=== PATIENT | female | born 1965 | race Caucasian/White ===

== ENCOUNTER 2019-11-01 22:05 | Inpatient (IN) ==
[2019-11-01] MEDS ORDERED: HydrALAZINE HCL 20 MG/ML VIAL IV STA (22:28)
--- NOTE | 2019-11-01 22:38 | XRay Report ---
SINGLE VIEW CHEST CLINICAL HISTORY: Atypical chest pain. FINDINGS: An AP, portable, upright chest radiograph is obtained. No prior studies are available for c omparison at the time of dictation. The examination is degraded by portable technique and apical lord otic positioning. The cardiomediastinal silhouette is unremarkable. There is mild elevation of right hemidiaphragm. The lungs and pleural spaces are clear. No pneumothorax is seen. The bony thorax is gr ossly intact. IMPRESSION: No active disease in the chest. ACT 112: Negative or not required by law. Electronically signed by: Brien Greenwood M.D. 11/01/2019 10:37 PM
[2019-11-01 23:01] LABS: Basophils # (auto) 0.02 K/uL (0-0.2); Basophils % (auto) 0.1 %; Eosinophils # (auto) 0.32 K/uL (0-0.5); Eosinophils % (auto) 2.3 %; Hematocrit (blood only) 39.7 % (37-47); Hemoglobin 14.4 g/dL (12.0-16.0); Immature Granulocytes # (auto) 0.06 K/uL (0.00-0.02); Immature Granulocytes % (auto) 0.4 %; Lymphocytes # (auto) 2.26 K/uL (1.2-3.4); Lymphocytes % (auto) 16.1 %; Mean Corpuscular Hemoglobin 29.1 pg (25-34); Mean Corpuscular Hgb Conc 36.3 g/dL (32-36); Mean Corpuscular Volume 80.2 fL (80-100); Mean Platelet Volume 9.2 fL (7.4-10.4); Monocytes # (auto) 0.79 K/uL (0.11-0.59); Monocytes % (auto) 5.6 %; Neutrophils # (auto) 10.61 K/uL (1.4-6.5); Neutrophils % (auto) 75.5 %; Platelet Count 387 K/uL (130-400); RDW Coefficient of Variation 12.8 % (11.5-14.5); RDW Standard Deviation 36.9 fL (36.4-46.3); Red Blood Count 4.95 M/uL (4.2-5.4); White Blood Count 14.06 K/uL (4.8-10.8)
[2019-11-01 23:13] LABS: Partial Thromboplastin Ratio 1.1; Partial Thromboplastin Time 28.7 Seconds (21.0-31.0); Prothrombin Time 10.7 Seconds (9.0-12.0)
[2019-11-01 23:27] LABS: Albumin Level 3.5 gm/dl (3.4-5.0); BUN Creatinine Ratio 10.7 (10-20); Calcium 9.3 mg/dl (8.5-10.1); Est GFR (Non-African American) 61.3; Potassium 3.7 mmol/L (3.5-5.1)
[2019-11-01 23:31] LABS: Albumin Globulin Ratio 0.8 (0.9-2); Bilirubin,Total 0.3 mg/dl (0.2-1); Globulin 4.2 gm/dl (2.5-4.0); Total Protein 7.7 gm/dl (6.4-8.2); Troponin I 0.104 ng/ml (0-0.045)
[2019-11-01 23:38] LABS: Beta-Hydroxybutyrate 1.8 mg/dl (0.2-2.81); Thyroid Stimulating Hormone 2.31 uIu/ml (0.300-4.500)
[2019-11-01 23:44] LABS: Appearance Urine Clear (Clear); Bacteria Urine Automated Negative (Negative); Bilirubin Urine Negative (Negative); Blood Urine Negative (Negative); Cast Urine Automated 0 /lpf (0-5); Color Urine Yellow; Epithelial Cell Urine Auto >30 /lpf (0-5); Glucose Urine UA 3+ (Negative); Ketones Urine Negative (Negative); Leukocyte Esterase Urine Negative (Negative); Nitrite Urine Negative (Negative); Protein Urine Trace (Negative); RBC Urine Automated 0-4 /hpf (0-4); Urobilinogen Urine Negative (Negative)
[2019-11-01] MEDS ORDERED: lisinopriL 40 MG TAB PO STA (23:59)
[2019-11-02] MEDS ORDERED: ASPIRIN 81 MG CHEW PO STA (00:01)
--- NOTE | 2019-11-02 00:01 | Emergency Department Note ---
Entered by Katlyn Hudson acting as a scribe for Heber Villagomez DO History of Present Illness General Chief complaint: Neuro Symptoms/Deficit Stated complaint: ELEVATED BP Time Seen by Provider: 11/01/19 22:17 Source: patient History of Present Illness Provider complaint: Neuro Symptoms/ Deficit Onset (ago): hour(s) 5 Location: face and left Radiation: extremity (Left hand) Relieved By: + none Exacerbated By: + none Associated symptoms: + other (Visual disturbances) The patient is a 54 year old female who presents to the Emergency Room with complaints of neuro symptoms/deficit that began about 5 hours ago. The patient reports that she began to notice some visual disturbances around 5pm that last for about 10 minutes and is now resolved. The patient notes that she then noticed that the side of her face felt "not right but not numb" and that she noticed decreased sensation in her left hand. The patient states that her symptoms are not relieved nor exacerbated by anything specific. Home Medications Home Medications Medication Instructions Recorded Confirmed Type acetaminophen [Tylenol Extra 1,000 mg PO DIRECTED PRN 11/01/19 11/01/19 History Strength] atenolol 25 mg PO BID 11/01/19 11/01/19 History fenofibrate 160 mg PO DAILY 11/01/19 11/01/19 History glipizide 10 mg PO BID 11/01/19 11/01/19 History indapamide 1.25 mg PO QAM 11/01/19 11/01/19 History lisinopril 40 mg PO DAILY 11/01/19 11/01/19 History metformin 1,000 mg PO BID 11/01/19 11/01/19 History omeprazole 20 mg PO DAILY 11/01/19 11/01/19 History simvastatin 40 mg PO DAILY 11/01/19 11/01/19 History Allergies Allergy/AdvReac Type Severity Reaction Status Date / Time tetracycline AdvReac Severe SEVERE GI Verified 11/01/19 22:54 UPSET aspirin AdvReac Intermediate HX Verified 11/01/19 22:54 ULCERS--GI UPSET Past Med/Surg History Medical History Hypertension Surgical History No pertinent past surgical history Family History Other No pertinent family history in first degree relatives Social History Preferred Language: Slovenian Feels Safe at Home: Yes Smoking Status: Former smoker Review of Systems See HPI for pertinent positives & negatives. and A total of 10 systems reviewed and were otherwise negative Physical Exam Vital Signs Vital Signs - 24 hr 11/01/19 22:08 11/01/19 23:11 Temperature 36.4 C L Temperature Source Oral Pulse Rate 86 92 H Pulse Rate [Finger] 92 H Pulse Rhythm Regular Regular Pulse Rhythm [Finger] Regular Pulse Strength Normal Pulse Strength [Finger] Normal Respiratory Rate 20 18 Respiratory Effort / Characteristics Non-Labored Spontaneous Non-Labored Spontaneous Respiratory Depth Normal Normal Respiratory Pattern Regular Regular Blood Pressure 230/132 H Blood Pressure [Right Arm] 218/124 H Blood Pressure Mean 164 Blood Pressure Mean [Right Arm] 155 Blood Pressure Position Sitting Blood Pressure Position [Right Arm] Lying Pulse Oximetry 98 97 Oxygen Delivery Method Room Air Room Air Sepsis Recent Fever Within 48 Hours No Sepsis Action Taken by Nursing No Action Required VITAL SIGNS: were reviewed as above. GENERAL:Non-toxic in appearance. SKIN: Warm dry and pink. HEAD: Normocephalic and atraumatic. OROPHARYNX: Is clear and moist NECK: Supple without lymphadenopathy or meningismus. LUNGS: clear. HEART: Regular rate and rhythm. ABDOMEN: Soft and nontender. EXTREMITIES: Warm and well perfused. NEUROLOGICALLY: Awake alert and oriented without focal deficit. Cranial nerves 2-12 are intact. There is no pronator drift. Cerebellar testing is within normal limits. There is no nystagmus. There is no facial droop. Speech is clear. Vision is grossly normal. Slight decrease in sensation in left forearm and left face. MUSCULOSKELETAL: Good muscle tone. No evidence of trauma. Course Course 2221: Past medical records reviewed. The patient was evaluated in room C08. A complete history and physical exam was performed. 2348: I spoke with Dr. Yeager- Hospitalist about the patient's case and he will accept the patient for further evaluation. Administered Medications Discontinued Medications Hydralazine HCl (Hydralazine Hcl) 15 mg IV NOW STA Stop: 11/01/19 22:29 Last Admin: 11/01/19 22:58 Dose: 15 mg Documented by: [id number] Critical Care Time Critical Care Time: Yes Total Critical Care Time: 38 I have personally spent approximately 38 minutes of critical care time in the direct management of this patient. This includes bedside care, interpretation of diagnostic studies, and testing, discussion with consultants, patient, and [facility] members, and other required patient management activities. This approximate 38 minutes is in excess of all separately billable procedures. Medical Decision Making Differential Diagnosis Differential Diagnosis includes but is not limited to dehydration, stroke, anemia, hypoglycemia, hyponatremia, hypernatremia, urinary tract infection, pneumonia, bronchitis, sepsis, gastroenteritis, additional abdominal pathology, metabolic abnormalities and infections. Medical Records Attestation: I reviewed the patient's medical records. Home Medications Current Medication List: was personally reviewed by me Laboratory Data Attestation: I reviewed the patient's lab results. Result diagrams: 11/01/19 22:50 11/01/19 22:50 Lab Results 11/01/19 11/01/19 11/01/19 Range/Units 22:50 22:50 22:50 WBC 14.06 H (4.8-10.8) K/uL RBC 4.95 (4.2-5.4) M/uL Hgb 14.4 (12.0-16.0) g/dL Hct 39.7 (37-47) % MCV 80.2 (80-100) fL MCH 29.1 (25-34) pg MCHC 36.3 H (32-36) g/dL RDW Std Deviation 36.9 (36.4-46.3) fL RDW Coeff of [place] 12.8 (11.5-14.5) % Plt Count 387 (130-400) K/uL MPV 9.2 (7.4-10.4) fL Immature Gran % (Auto) 0.4 % Neut % (Auto) 75.5 % Lymph % (Auto) 16.1 % [place] % (Auto) 5.6 % Eos % (Auto) 2.3 % Baso % (Auto) 0.1 % Immature Gran # (Auto) 0.06 H (0.00-0.02) K/uL Neut # (Auto) 10.61 H (1.4-6.5) K/uL Lymph # (Auto) 2.26 (1.2-3.4) K/uL [place] # (Auto) 0.79 H (0.11-0.59) K/uL Eos # (Auto) 0.32 (0-0.5) K/uL Baso # (Auto) 0.02 (0-0.2) K/uL PT 10.7 (9.0-12.0) Seconds INR 1.0 (0.9-1.1) APTT 28.7 (21.0-31.0) Seconds PTT Ratio 1.1 Sodium 132 L (136-145) mmol/L Potassium 3.7 (3.5-5.1) mmol/L Chloride 96 L (98-107) mmol/L Carbon Dioxide 26 (21-32) mmol/L Anion Gap 10.0 (3-11) BUN 11 (7-18) mg/dl Creatinine 1.04 (0.6-1.2) mg/dl Est Cr Clr Drug Dosing 63.0 ml/min Est GFR ( Amer) 71.0 Est GFR (Non-Af Amer) 61.3 BUN/Creatinine Ratio 10.7 (10-20) Glucose 323 H* (70-99) mg/dl Calcium 9.3 (8.5-10.1) mg/dl Total Bilirubin 0.3 (0.2-1) mg/dl AST 10 L (15-37) U/L ALT 16 (12-78) U/L Alkaline Phosphatase 70 (45-117) U/L Total Creatine Kinase 179 (26-192) U/L Troponin I 0.104 H* (0-0.045) ng/ml Total Protein 7.7 (6.4-8.2) gm/dl Albumin 3.5 (3.4-5.0) gm/dl Globulin 4.2 H (2.5-4.0) gm/dl Albumin/Globulin Ratio 0.8 L (0.9-2) Lipase 85 (73-393) U/L Beta-Hydroxybutyric Acd 1.80 (0.2-2.81) mg/dl TSH 2.310 (0.300-4.500) uIu/ml Urine Color Urine Appearance (Clear) Urine pH (4.5-7.5) Ur Specific [place] (1.000-1.030) Urine Protein (Negative) Urine Glucose (UA) (Negative) Urine Ketones (Negative) Urine Blood (Negative) Urine Nitrite (Negative) Urine Bilirubin (Negative) Urine Urobilinogen (Negative) Ur Leukocyte Esterase (Negative) Urine WBC (Auto) (0-5) /hpf Urine RBC (Auto) (0-4) /hpf U Hyaline Cast (Auto) (0-5) /lpf U Epithel Cells (Auto) (0-5) /lpf Urine Bacteria (Auto) (Negative) 11/01/19 Range/Units 23:27 WBC (4.8-10.8) K/uL RBC (4.2-5.4) M/uL Hgb (12.0-16.0) g/dL Hct (37-47) % MCV (80-100) fL MCH (25-34) pg MCHC (32-36) g/dL RDW Std Deviation (36.4-46.3) fL RDW Coeff of [place] (11.5-14.5) % Plt Count (130-400) K/uL MPV (7.4-10.4) fL Immature Gran % (Auto) % Neut % (Auto) % Lymph % (Auto) % [place] % (Auto) % Eos % (Auto) % Baso % (Auto) % Immature Gran # (Auto) (0.00-0.02) K/uL Neut # (Auto) (1.4-6.5) K/uL Lymph # (Auto) (1.2-3.4) K/uL [place] # (Auto) (0.11-0.59) K/uL Eos # (Auto) (0-0.5) K/uL Baso # (Auto) (0-0.2) K/uL PT (9.0-12.0) Seconds INR (0.9-1.1) APTT (21.0-31.0) Seconds PTT Ratio Sodium (136-145) mmol/L Potassium (3.5-5.1) mmol/L Chloride (98-107) mmol/L Carbon Dioxide (21-32) mmol/L Anion Gap (3-11) BUN (7-18) mg/dl Creatinine (0.6-1.2) mg/dl Est Cr Clr Drug Dosing ml/min Est GFR ( Amer) Est GFR (Non-Af Amer) BUN/Creatinine Ratio (10-20) Glucose (70-99) mg/dl Calcium (8.5-10.1) mg/dl Total Bilirubin (0.2-1) mg/dl AST (15-37) U/L ALT (12-78) U/L Alkaline Phosphatase (45-117) U/L Total Creatine Kinase (26-192) U/L Troponin I (0-0.045) ng/ml Total Protein (6.4-8.2) gm/dl Albumin (3.4-5.0) gm/dl Globulin (2.5-4.0) gm/dl Albumin/Globulin Ratio (0.9-2) Lipase (73-393) U/L Beta-Hydroxybutyric Acd (0.2-2.81) mg/dl TSH (0.300-4.500) uIu/ml Urine Color Yellow Urine Appearance Clear (Clear) Urine pH 7.0 (4.5-7.5) Ur Specific [place] 1.030 (1.000-1.030) Urine Protein Trace H (Negative) Urine Glucose (UA) 3+ H (Negative) Urine Ketones Negative (Negative) Urine Blood Negative (Negative) Urine Nitrite Negative (Negative) Urine Bilirubin Negative (Negative) Urine Urobilinogen Negative (Negative) Ur Leukocyte Esterase Negative (Negative) Urine WBC (Auto) 1-5 (0-5) /hpf Urine RBC (Auto) 0-4 (0-4) /hpf U Hyaline Cast (Auto) 0 (0-5) /lpf U Epithel Cells (Auto) >30 H (0-5) /lpf Urine Bacteria (Auto) Negative (Negative) Imaging Data Radiologist's Impression: Radiology results as stated below per my review and the radiologist's interpretation: SINGLE VIEW CHEST CLINICAL HISTORY: Atypical chest pain. FINDINGS: An AP, portable, upright chest radiograph is obtained. No prior studies are available for comparison at the time of dictation. The examination is degraded by portable technique and apical lordotic positioning. The cardiomediastinal silhouette is unremarkable. There is mild elevation of right hemidiaphragm. The lungs and pleural spaces are clear. No pneumothorax is seen. The bony thorax is grossly intact. IMPRESSION: No active disease in the chest. ACT 112: Negative or not required by law. Electronically signed by: Brien Greenwood M.D. 11/01/2019 10:[address] HEAD FINDINGS: No intracranial hemorrhage, mass-effect, edema, or acute cortical infarct. Age indeterminate lacunar infarcts within the right parietal periventricular white matter and left basal ganglia. Electronically signed by: Mannie Justin M.D. 11/01/2019 11:20 PM ECG Data Indication: + weakness Rate (beats per minute): 96 Rhythm: + normal sinus ECG Intervals/blocks: + Normal QT-c ECG ST segments: no ST elevation ECG Findings: no PVCs Blood Pressure Blood Pressure Findings: Elevated blood pressure Blood Pressure Disposition: further management by hospitalist MDM Narrative This is a 54-year-old female who presents to the ED with a chief complaint of some changes in her vision around 5 PM today. She states that this lasted for about 10 minutes and then resolved. This evening she began feeling like her face and left forearm and hand was a little numb. She states that she had sensation but it did not feel the same especially with regards to temperature. The patient checked her blood pressure and it was elevated. She is a home health nurse. The patient's initial blood pressure here was 230/132. She does take medication at home for hypertension. She also takes cholesterol medication and is a type II diabetic. The patient's neuro exam here was normal. Her phys ical exam was normal. She does subjectively have some decreased sensation or change in her sensation in the left face and left hand and forearm compared to the right although she states that it seems to be more prominent with regards to temperature. A twelve-lead EKG shows a normal sinus rhythm at a rate of 96. Chest x-ray did not show acute process. Troponin was elevated at 0.104. Glucose is elevated at 323. CT scan of the brain does not show acute process but does show some previous lacunar infarcts. She is unaware of previous TIAs or CVAs. The patient was initially given some hydralazine IV for her hypertension. 50 mg IV did not seem to change the blood pressure much. The patient was started on nicardipine drip and also provided p.o. aspirin. I spoke with Dr. Khan from the hospitalist service for further evaluation and care. Impression & Plan Hypertensive emergency, Elevated troponin, TIA (transient ischemic attack) Discharge Plan Visit Data Chief Complaint: Neuro Symptoms/Deficit Stated Complaint: ELEVATED BP ED Provider: Heber Villagomez Discharge Problem: Hypertensive emergency, Elevated troponin, TIA (transient ischemic attack) Forms Stand Alone Forms: [facility] Prescriptions Prescriptions: No Action glipizide 10 mg Tablet 10 mg PO BID RF: 0 atenolol 25 mg Tablet 25 mg PO BID RF: 0 acetaminophen [Tylenol Extra Strength] 500 mg Tablet 1,000 mg PO DIRECTED PRN (Reason: Fever Or Pain) RF: 0 simvastatin 40 mg Tablet 40 mg PO DAILY RF: 0 metformin 1,000 mg Tablet 1,000 mg PO BID RF: 0 indapamide 1.25 mg Tablet 1.25 mg PO QAM RF: 0 omeprazole 20 mg Capsule,Delayed Release(Dr/Ec) 20 mg PO DAILY RF: 0 lisinopril 40 mg Tablet 40 mg PO DAILY RF: 0 fenofibrate 160 mg Tablet 160 mg PO DAILY RF: 0 The leydiibe's documentation has been prepared under my direction and personally reviewed by me in its entirety. I confirm that the note above accurately reflects all work, treatment, procedures, and medical decision making performed by me.
[2019-11-02] MEDS ORDERED: LABETALOL HCL 100 MG TAB PO STA (00:03)
[2019-11-02] MEDS ORDERED: ASPIRIN 81 MG ECTAB PO STA (00:41)
[2019-11-02] MEDS ORDERED: INSULIN GLARGINE SOLOSTAR 100 UNITS/ML 3 ML PEN SC STA ×2 (00:42→17:08)
--- NOTE | 2019-11-02 00:43 | History & Physical Report ---
Date of Service November 02, 2019 Assessment & Plan (1) Hypertensive crisis: Troponin elevation second to above LUE heaviness possible TIA Old CVA on CAT scan hyperlipidemia, on statin Rx DM 2 on oral medications, BSG 300s, suboptimal recent outpatient hemoglobin A1c which patient cannot remember as per patient GERD, stable on regimen Cough symptoms/early AM postnasal drip PCU Careful blood pressure lowering in consideration of possible TIA Change patient atenolol to labetalol, continue lisinopril for now Aspirin for secondary stroke prevention until stroke ruled out MRI/MRA of the brain RE left upper extremity heaviness TTE, carotid Dopplers for stroke work-up given old CVA on CAT scan findings Neurology consult RE left upper extremity heaviness Follow troponin Continue statin Rx, check lipid profile Basal insulin, ISS BG goal [id number], carb count coverage, check hemoglobin A1c Flonase trial for early a.m. postnasal drip symptoms. DVT prophylaxis. Lovenox subcu Full code History of Present Illness Arm surgery arm surgery Chief Complaint: Left arm heavy Primary Care Provider: Dr. Sterling Howe History obtained from patient, family, and records. Medical history significant for hypertension, hyperlipidemia, DM 2 on oral medications, GERD. Yesterday afternoon patient noted a funny sensation on the left side of her f zaid, no headache. She later noted left arm heaviness. No chest pain, no S OB. 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 Initial BP upon arrival at the ER 230/132. Patient claims to be compliant with home meds. Does not regularly take blood pressure at home. Last BP check was at PCPs office months ago. SBP 140s as per patient. Denies dietary indiscretion or any OTC NSAID intake. Although she snores as per , he is not certain about apneic events during sleep. Patient given aspirin at the ER. Left upper extremity heaviness improving. Nicardipine drip started and IV hydralazine bolus given at the ER for hypertensive crisis. SBP currently 180s. Medical History as above Surgical History : Arm surgery Family History : Heart disease, diabetes Personal/Social history : Non-smoker, no EtOH intake, registered nurse Allergies Allergy/AdvReac Type Severity Reaction Status Date / Time tetracycline AdvReac Severe SEVERE GI Verified 11/01/19 22:54 UPSET aspirin AdvReac Intermediate HX Verified 11/01/19 22:54 ULCERS--GI UPSET Home Medications Home Medications Medication Instructions Recorded Confirmed Type acetaminophen [Tylenol Extra 1,000 mg PO DIRECTED PRN 11/01/19 11/01/19 History Strength] atenolol 25 mg PO BID 11/01/19 11/01/19 History fenofibrate 160 mg PO DAILY 11/01/19 11/01/19 History glipizide 10 mg PO BID 11/01/19 11/01/19 History indapamide 1.25 mg PO QAM 11/01/19 11/01/19 History lisinopril 40 mg PO DAILY 11/01/19 11/01/19 History metformin 1,000 mg PO BID 11/01/19 11/01/19 History omeprazole 20 mg PO DAILY 11/01/19 11/01/19 History simvastatin 40 mg PO DAILY 11/01/19 11/01/19 History Past Med/Surg History Medical History (Updated 11/02/19 @ 02:17 by Dax Yeager MD) Asthma Hyperlipidemia Hypertension Surgical History No pertinent past surgical history Family History Other No pertinent family history in first degree relatives Social History Preferred Language: [place] Citizen Communication Ability: Effective Twisthand Required: No Beliefs That Will Affect Care: None Current Living Situation: Family Other Information That Helps Us Care for You: No Feels Safe at Home: Yes Safety Concerns: Feels Safe At This Time Smoking Status: Unknown if ever smoked Hx Alcohol Use: No Hx Substance Use: No Review of Systems Review of Systems: As per HPI, all 10 systems reviewed, postnasal drip symptoms in early a.m. causing chronic cough as per patient all other ROS negative Physical Exam Physical Exam: GENERAL: Comfortable, obese, no respiratory distress SKIN: Normal color, warm HEENT: Bespectacled, pink palpebral conjunctivae, no ptosis, dry buccal mucosa NECK : Supple, short neck, no tenderness CHEST : CTA, no tenderness HEART : RRR, no obvious murmurs ABDOMEN: Some distention, nontender EXTREMITIES : No LE swelling/tenderness, no other conspicuous deformities noted NEUROLOGIC : Coherent, no facial asymmetry, no other gross focality Results & Data Vital Signs (Past 12 Hours) Vital Signs Temp Pulse Pulse Resp BP BP Pulse Ox 11/01/19 23:11 92 H 92 H 18 218/124 H 97 11/01/19 22:08 36.4 C L 86 20 230/132 H 98 Laboratory Results Laboratory Results WBC 14.06 K/uL (4.8-10.8) H 11/01/19 22:50 RBC 4.95 M/uL (4.2-5.4) 11/01/19 22:50 Hgb 14.4 g/dL (12.0-16.0) 11/01/19 22:50 Hct 39.7 % (37-47) 11/01/19 22:50 MCV 80.2 fL (80-100) 11/01/19 22:50 MCH 29.1 pg (25-34) 11/01/19 22:50 MCHC 36.3 g/dL (32-36) H 11/01/19 22:50 RDW Std Deviation 36.9 fL (36.4-46.3) 11/01/19 22:50 RDW Coeff of [place] 12.8 % (11.5-14.5) 11/01/19 22:50 Plt Count 387 K/uL (130-400) 11/01/19 22:50 MPV 9.2 fL (7.4-10.4) 11/01/19 22:50 Immature Gran % (Auto) 0.4 % 11/01/19 22:50 Neut % (Auto) 75.5 % 11/01/19 22:50 Lymph % (Auto) 16.1 % 11/01/19 22:50 [place] % (Auto) 5.6 % 11/01/19 22:50 Eos % (Auto) 2.3 % 11/01/19 22:50 Baso % (Auto) 0.1 % 11/01/19 22:50 Immature Gran # (Auto) 0.06 K/uL (0.00-0.02) H 11/01/19 22:50 Neut # (Auto) 10.61 K/uL (1.4-6.5) H 11/01/19 22:50 Lymph # (Auto) 2.26 K/uL (1.2-3.4) 11/01/19 22:50 [place] # (Auto) 0.79 K/uL (0.11-0.59) H 11/01/19 22:50 Eos # (Auto) 0.32 K/uL (0-0.5) 11/01/19 22:50 Baso # (Auto) 0.02 K/uL (0-0.2) 11/01/19 22:50 PT 10.7 Seconds (9.0-12.0) 11/01/19 22:50 INR 1.0 (0.9-1.1) 11/01/19 22:50 APTT 28.7 Seconds (21.0-31.0) 11/01/19 22:50 PTT Ratio 1.1 11/01/19 22:50 Sodium 132 mmol/L (136-145) L 11/01/19 22:50 Potassium 3.7 mmol/L (3.5-5.1) 11/01/19 22:50 Chloride 96 mmol/L (98-107) L 11/01/19 22:50 Carbon Dioxide 26 mmol/L (21-32) 11/01/19 22:50 Anion Gap 10.0 (3-11) 11/01/19 22:50 BUN 11 mg/dl (7-18) 11/01/19 22:50 Creatinine 1.04 mg/dl (0.6-1.2) 11/01/19 22:50 Est Cr Clr Drug Dosing 63.0 ml/min 11/01/19 22:50 Est GFR ( Amer) 71.0 11/01/19 22:50 Est GFR (Non-Af Amer) 61.3 11/01/19 22:50 BUN/Creatinine Ratio 10.7 (10-20) 11/01/19 22:50 Glucose 323 mg/dl (70-99) H* 11/01/19 22:50 Calcium 9.3 mg/dl (8.5-10.1) 11/01/19 22:50 Total Bilirubin 0.3 mg/dl (0.2-1) 11/01/19 22:50 AST 10 U/L (15-37) L 11/01/19 22:50 ALT 16 U/L (12-78) 11/01/19 22:50 Alkaline Phosphatase 70 U/L (45-117) 11/01/19 22:50 Total Creatine Kinase 179 U/L (26-192) 11/01/19 22:50 Troponin I 0.104 ng/ml (0-0.045) H* 11/01/19 22:50 Total Protein 7.7 gm/dl (6.4-8.2) 11/01/19 22:50 Albumin 3.5 gm/dl (3.4-5.0) 11/01/19 22:50 Globulin 4.2 gm/dl (2.5-4.0) H 11/01/19 22:50 Albumin/Globulin Ratio 0.8 (0.9-2) L 11/01/19 22:50 Lipase 85 U/L (73-393) 11/01/19 22:50 Beta-Hydroxybutyric Acd 1.80 mg/dl (0.2-2.81) 11/01/19 22:50 TSH 2.310 uIu/ml (0.300-4.500) 11/01/19 22:50 Urine Color Yellow 11/01/19 23: Urine Appearance Clear (Clear) 11/01/19 23: Urine pH 7.0 (4.5-7.5) 11/01/19 23:27 Ur Specific [place] 1.030 (1.000-1.030) 11/01/19 23:27 Urine Protein Trace (Negative) H 11/01/19 23:27 Urine Glucose (UA) 3+ (Negative) H 11/01/19 23:27 Urine Ketones Negative (Negative) 11/01/19 23: Urine Blood Negative (Negative) 11/01/19 23: Urine Nitrite Negative (Negative) 11/01/19 23: Urine Bilirubin Negative (Negative) 11/01/19 23: Urine Urobilinogen Negative (Negative) 11/01/19 23: Ur Leukocyte Esterase Negative (Negative) 11/01/19 23: Urine WBC (Auto) 1-5 /hpf (0-5) 11/01/19 23:27 Urine RBC (Auto) 0-4 /hpf (0-4) 11/01/19 23:27 U Hyaline Cast (Auto) 0 /lpf (0-5) 11/01/19 23: U Epithel Cells (Auto) >30 /lpf (0-5) H 11/01/19 23:27 Urine Bacteria (Auto) Negative (Negative) 11/01/19 23:[address] head initial read no intracranial hemorrhage, mass-effect, edema or acute cortical infarct. Age indeterminate lacunar infarcts within the right parietal periventricular white matter and left basal ganglia. Chest x-ray : No active disease EKG as per my interpretation : Rate 95, NSR, LAD, LAFB, T wave flattening inferior leads
[2019-11-02] MEDS ORDERED: PANTOprazole 40 MG TAB PO STA (00:46)
[2019-11-02] MEDS ORDERED: PROMETHAZINE HCL 12.5 MG in SODIUM CHLORIDE 0.9% 50 ML IV STA (01:23)
[2019-11-02] MEDS ORDERED: PROMETHAZINE HCL 12.5 MG in SODIUM CHLORIDE 0.9% 50 ML IV PRN (01:55)
[2019-11-02] MEDS ORDERED: NITROGLYCERIN SL 0.4 MG/TAB TAB SL PRN (01:55)
[2019-11-02] MEDS ORDERED: GLUCAGON FOR INJ 1 MG VIAL SQ PRN (01:55)
[2019-11-02] MEDS ORDERED: ACETAMINOPHEN 325 MG TAB PO PRN (01:55)
[2019-11-02] MEDS ORDERED: CARBOHYDRATES FOR HYPOGLYCEMIA PO PRN (01:55)
[2019-11-02] MEDS ORDERED: GLUCOSE 10 TABS/TUBE PO PRN (01:55)
[2019-11-02] MEDS ORDERED: LORazepam 0.25 MG/0.5 ML VIAL IV PRN (01:55)
[2019-11-02] MEDS ORDERED: DEXTROSE 50% 50 ML SYRINGE IV PRN (01:55)
[2019-11-02] MEDS ORDERED: NSS + 20MEQ KCL 20 MEQ/1,000 ML BAG IV ONE (01:55)
[2019-11-02] MEDS ORDERED: MoRPHine SULFATE 4 MG/ML 1 ML CARP\\VIAL IV PRN (01:55)
[2019-11-02] MEDS ORDERED: TRAMADOL HCL 50 MG TABLET PO PRN (01:55)
[2019-11-02] MEDS ORDERED: GLUCOSE 40% GEL 15 GM TUBE PO PRN (01:55)
[2019-11-02] MEDS ORDERED: lisinopriL 40 MG TAB PO STA (02:13)
[2019-11-02 02:26] LABS: Pregnancy Test, Urine Negative (Negative)
[2019-11-02] MEDS: FLUTICASONE PROPIONATE NA SPR 16 GM BTL SCH ×3 (02:33→21:58)
[2019-11-02] MEDS: INSULIN ASPART 100 UNITS/ML 3 ML PEN SC SCH ×6 (02:35→23:34)
[2019-11-02 05:44] LABS: Partial Thromboplastin Time 26.7 Seconds (21.0-31.0)
[2019-11-02 05:48] LABS: Basophils # (auto) 0.01 K/uL (0-0.2); Basophils % (auto) 0.1 %; Eosinophils # (auto) 0.04 K/uL (0-0.5); Eosinophils % (auto) 0.3 %; Hematocrit (blood only) 37.4 % (37-47); Hemoglobin 13.3 g/dL (12.0-16.0); Immature Granulocytes # (auto) 0.05 K/uL (0.00-0.02); Immature Granulocytes % (auto) 0.3 %; Lymphocytes # (auto) 1.71 K/uL (1.2-3.4); Lymphocytes % (auto) 11.8 %; Mean Corpuscular Hemoglobin 28.4 pg (25-34); Mean Corpuscular Hgb Conc 35.6 g/dL (32-36); Mean Corpuscular Volume 79.9 fL (80-100); Mean Platelet Volume 9.3 fL (7.4-10.4); Monocytes # (auto) 0.65 K/uL (0.11-0.59); Monocytes % (auto) 4.5 %; Neutrophils # (auto) 11.99 K/uL (1.4-6.5); Platelet Count 369 K/uL (130-400); RDW Standard Deviation 37.5 fL (36.4-46.3); Red Blood Count 4.68 M/uL (4.2-5.4); White Blood Count 14.45 K/uL (4.8-10.8)
[2019-11-02 06:08] LABS: BUN Creatinine Ratio 12.9 (10-20); Creatinine Clr Calc Pharmacy 74.7 ml/min; Est GFR (African American) 88.2; Est GFR (Non-African American) 76.1; Potassium 3.3 mmol/L (3.5-5.1)
[2019-11-02 06:28] LABS: Estimated Average Glucose 226 mg/dl; Hemoglobin A1C 9.5 % (4.5-5.6)
--- NOTE | 2019-11-02 06:43 | CT Scan Report ---
CT head/brain wo con CLINICAL HISTORY: 54 years-old Female with htn, numbness. Acute hypertension with left hand and faci al numbness TECHNIQUE: Multiple axial CT images of the head were obtained without contrast. A dose lowering tech nique was utilized adhering to the principles of ALARA. CT DOSE: 537.48 mGy.cm COMPARISON: Brain MRI of same day FINDINGS: No acute intracranial hemorrhage, midline shift, intracranial mass, hydrocephalus, territorial ischem ia or abnormal extra-axial collection. Ill-defined patchy white matter hypodensities are suggestive o f chronic microvascular ischemic disease. Remote lacunar infarction of the left sarmiento radiata and po sterior limb internal capsule. Cerebral vascular calcifications are noted. The calvarium is intact. Mild mucosal thickening of the ethmoid air cells. The mastoid air cells are clear. Hypoplasia of the frontal sinuses. IMPRESSION: No acute intracranial abnormality. ACT 112: Negative or not required by law. The above report was generated using voice recognition software. It may contain grammatical, syntax o r spelling errors. Electronically signed by: Kuldip Wilson M.D. 11/02/2019 6:42 AM
--- NOTE | 2019-11-02 06:54 | Ultrasound Report ---
US carotid doppler BI CLINICAL HISTORY: 54 years-old Female with stroke. Acute strokelike symptoms COMPARISON: Brain MRI of same day TECHNIQUE: Multiple real time sonographic images of the carotid bifurcations were obtained assessing balderas scale, color Doppler and spectral wave form appearance FINDINGS: RIGHT CAROTID: The peak systolic velocity measured within the right ICA is95.1 cm/sec. The end cordova tolic velocity measured 22.4 cm/sec. The ICA to CCA ratio measured 1.1 which correlates with a steno sis of 0-50%. Mild mostly soft plaque of the right carotid bulb. LEFT CAROTID: The peak systolic velocity measured within the left ICA is102.7 cm/sec. The end diast olic velocity measured 28.4 cm/sec. The ICA to CCA ratio measured 1.3 which correlates with a stenosi s of 0-50%. Moderate mostly soft plaque of the left carotid bulb Biphasic flow noted within the right vertebral artery. Normal antegrade flow of the left vertebral ar ana. The imaged bilateral subclavian arteries appear unremarkable. IMPRESSION: 1. No hemodynamically significant stenosis. 2. Biphasic flow within the right vertebral artery may reflect early changes of subclavian steal. ACT 112: Negative or not required by law. The above report was generated using voice recognition software. It may contain grammatical, syntax o r spelling errors. Electronically signed by: Kuldip Wilson M.D. 11/02/2019 6:53 AM
--- NOTE | 2019-11-02 06:59 | Magnetic Resonance Report ---
MR brain wo con HISTORY: 54 years-old Female TIA acute strokelike symptoms with hypertension COMPARISON: Brain MRI of same day TECHNIQUE: Multiplanar multisequence MRI of the brain was obtained without the use of IV contrast FINDINGS: Assembler Convertible Top localizer images demonstrate no gross extracranial abnormality. There is no restricted diffusio n to suggest acute or subacute infarction. Tiny focus of T2 shine through in the left periventricular white matter, image 13 series 4. The midline structures including the corpus callosum, brainstem, op tic chiasm, and pituitary gland appear unremarkable on the sagittal T1 series. 4 mm pineal gland cyst incidentally noted. Degenerative changes of the cervical spine. Moderate enlargement of the adenoid tonsils. No acute intracranial hemorrhage, midline shift, abnormal extra axial collection, hydrocephalus or in tracranial mass. Moderate patchy T2/FLAIR hyperintensities about the white matter. Remote lacunar inf arctions of the left sarmiento radiata extending into the left thalamus and posterior limb left internal capsule. Flow voids at the level of the skull base appear patent. Trace mastoid effusions. Mild muco kelin thickening of the paranasal sinuses. The orbits, skull and soft tissues appear unremarkable. IMPRESSION: 1. No acute intracranial abnormality, specifically there is no evidence of acute or subacute infarcti on. 2. Moderate T2/FLAIR hyperintensities throughout the white matter are nonspecific however statistical ly favor chronic microvascular ischemic disease with demyelinating process considered less likely. 3. Mild paranasal sinus disease. ACT 112: Negative or not required by law. The above report was generated using voice recognition software. It may contain grammatical, syntax o r spelling errors. Electronically signed by: Kuldip Wilson M.D. 11/02/2019 6:58 AM
--- NOTE | 2019-11-02 07:23 | Magnetic Resonance Report ---
Brain MRA HISTORY: Left facial numbness. TECHNIQUE: 3-D [id number] MRA of the brain was performed without contrast. COMPARISON STUDY: None. FINDINGS: The visualized intracranial internal carotid arteries, distal left vertebral artery, and ba silar artery are widely patent. The distal right vertebral artery is only faintly visualized at the C 1 level. Therefore, this could be severely hypoplastic, congenitally absent, or possibly a occluded. However, this is considered less likely given the lack of an infarct on the same day brain MRI. The b ilateral ACAs and MCAs show no significant stenosis, occlusion, or aneurysm. Moderate focal narrowing within the distal right P1 segment and mild focal narrowing within the mid left P1 segment. The dist al bilateral tool and equipment rental clerk are patent. IMPRESSION: 1. The distal right vertebral artery is only faintly visualized at the C1 level. Therefore, this coul d be severely hypoplastic, congenitally absent, or possibly a occluded. However, this is considered l ess likely given the lack of an infarct on the same day brain MRI. Follow-up neck CTA can be performe d for further evaluation if clinically warranted. 2. Moderate focal narrowing within the distal right P1 segment and mild focal narrowing within the mi d left P1 segment. However, the distal bilateral tool and equipment rental clerk are patent. ACT 112: Negative or not required by law. Electronically signed by: Bryan Martínez M.D. 11/02/2019 7:21 AM
[2019-11-02] MEDS ORDERED: SIMVASTATIN 40 MG TAB PO SCH (09:00)
[2019-11-02] MEDS ORDERED: ENOXAPARIN INJ 40 MG/0.4 ML SYR SQ SCH (09:00)
[2019-11-02] MEDS ORDERED: lisinopriL 40 MG TAB PO SCH ×2 (09:00)
[2019-11-02] MEDS: POTASSIUM CHLORIDE / WTR 10 MEQ/100 ML PLCT IV SCH ×2 (09:09→10:10)
[2019-11-02] MEDS: LABETALOL HCL 100 MG TAB PO SCH ×2 (09:21→20:59)
[2019-11-02] MEDS: PANTOprazole 40 MG TAB PO SCH (09:22)
--- NOTE | 2019-11-02 14:17 | Electrocardiogram Report ---
Test Reason : Blood Pressure : / mmHG Vent. Rate : 096 BPM Atrial Rate : 096 BPM P-R Int : 162 ms QRS Dur : 088 ms QT Int : 348 ms P-R-T Axes : 056 009 028 degrees QTc Int : 439 ms Normal sinus rhythm Normal ECG No previous ECGs available Confirmed by Elijah Miller ([id number]) on 11/02/2019 2:17:16 PM Referred By: REFERRED SELF Confirmed By:Elijah Miller
--- NOTE | 2019-11-02 14:18 | Electrocardiogram Report ---
Test Reason : Blood Pressure : / mmHG Vent. Rate : 086 BPM Atrial Rate : 086 BPM P-R Int : 160 ms QRS Dur : 096 ms QT Int : 370 ms P-R-T Axes : 044 003 030 degrees QTc Int : 442 ms Normal sinus rhythm Normal ECG When compared with ECG of 01-NOV-2019 23:03, (unconfirmed) No significant change was found Confirmed by Elijah Miller ([id number]) on 11/02/2019 2:18:27 PM Referred By: REFERRED SELF Confirmed By:Elijah Miller
[2019-11-02] MEDS ORDERED: PHARMACY GLYCEMIC MGMT CONSULT PRN (15:37)
--- NOTE | 2019-11-02 15:47 | Neurology Consultation ---
Date of Consultation November 02, 2019 Assessment & Plan (1) Hypertensive crisis: 1. HTN -needs to optimize control (2) TIA (transient ischemic attack): 1. MRI brain- no acute finding 2. carotid doppler- right vert. art. early changes subclavian steal - not related to symptoms 3. optimize HTN, HLD, DM LDL <70 4. PT/OT speech no current needs 5. follow up with PCP for further recommendations will see in neurology in 4-6 weeks Becky Todd PAC schedule Supervising Physician Co-Signing Physician Notes I have seen and discussed above patient with Dr Becky Toribio, neurology Pt seen and examined. pt had 2 1/2 hour episode of L facial heaviness and L arm heaviness. No visual sx or vertigo. Episode not assoc with arm use. MRI brain neg.CTA poss distal R vert occlusion v stensosi. Exam notable for mild dec pulsation R radial artery compared to left Imp TIA, probably anterior circulation. p Dual antiplt tx , better control DM, BP, LDL <70, query tx triglycerdies. Echo, will need zio as outpt. Check bp in both arms. R vert stenosis v occlusion. CTA neck/head ordered. No clinical evidence of subclavian steal. filiberto Niño MD History of Present Illness Reason for Consultation: LUE heaviness Requesting Physician: Mt Norman MD Attending Physician: Mt Norman MD History of Present Illness Paige is a 54 year old female who presents to [facility] ED with complaints left UE heaviness that started about 5 hours prior to arrival. Last for about 10 minutes and resolved spontaneously. face felt "not right but not numb" and that she noticed decreased sensation in her left hand. Her symptoms are not relieved nor exacerbated by anything specific. She took her blood pressure at home and it was over 200 systolic. Currently she states all the symptoms have resolved. she was not on aspirin prior to event. PMH DM 2, HTN, HLD, denies CP, SOB, abdominal pain, one sided weakness, numbness tingling,N, V, vision changes, falls. Allergies Allergy/AdvReac Type Severity Reaction Status Date / Time tetracycline AdvReac Severe SEVERE GI Verified 11/01/19 22:54 UPSET aspirin AdvReac Intermediate HX Verified 11/01/19 22:54 ULCERS--GI UPSET Home Medications Home Medications Medication Instructions Recorded Confirmed Type acetaminophen [Tylenol Extra 1,000 mg PO DIRECTED PRN 11/01/19 11/01/19 History Strength] atenolol 25 mg PO BID 11/01/19 11/01/19 History fenofibrate 160 mg PO DAILY 11/01/19 11/01/19 History glipizide 10 mg PO BID 11/01/19 11/01/19 History indapamide 1.25 mg PO QAM 11/01/19 11/01/19 History lisinopril 40 mg PO DAILY 11/01/19 11/01/19 History metformin 1,000 mg PO BID 11/01/19 11/01/19 History omeprazole 20 mg PO DAILY 11/01/19 11/01/19 History simvastatin 40 mg PO DAILY 11/01/19 11/01/19 History Patient History Medical History (Updated 11/02/19 @ 17:35 by Mt Norman MD) Asthma Hyperlipidemia Hypertension Surgical History No pertinent past surgical history Family History Other No pertinent family history in first degree relatives Social History Preferred Language: Polish Communication Ability: Effective Drapery Rod Assembler Required: No Beliefs That Will Affect Care: None Current Living Situation: Family Other Information That Helps Us Care for You: No Feels Safe at Home: Yes Safety Concerns: Feels Safe At This Time Smoking Status: Unknown if ever smoked Hx Alcohol Use: No Hx Substance Use: No Physical Exam Physical Exam: Physical Exam: Constitutional: appearance over nourished, healthy Ears, Nose, Mouth and Throat: mucous membranes moist, no injection and skin normal, eyes normal Cardiovascular: normal S-1 and S-2 and regular rate and rhythm Respiratory: clear to auscultation (CTA) and no rales, rhonchi or wheeze Musculoskeletal: no peripheral edema and good distal pulses Skin: no stigmata of neurocutaneous disease noted and normal and intact Eyes: extraocular muscles intact (EOMI) and pupils equal, round and reactive to light (PERRL) NEUROLOGIC EXAMINATION: Mental status: Alert and interactive Oriented to full date and location Oriented to person Speech fluent with no evidence of aphasia Cranial Nerves smile eye brow raise symmetric Reflexes: Deep tendon reflexes were symmetrical and graded 2/5. down going toes Sensory: intact to light and cool touch Coordination: finger to nose no bipass rapid hand intact Gait/Stance: Posture normal. Gait normal: with steady with steps, base, turning, heel and toe walking and tandem gait. Motor: Negative for pronator drift of out stretched arms with eyes closed. Strength: hand shellac polisher biceps triceps deltoid bilaterally 5/5, hip flex bilaterally 5/5 plantar flex ext 5/5 Results & Data Vital Signs (Past 12 Hours) Vital Signs Temp Pulse Pulse Pulse Resp BP Pulse Ox 11/02/19 11:39 36.5 C 78 18 135/73 98 11/02/19 07:35 87 11/02/19 07:12 36.5 C 88 16 149/88 H 95 11/02/19 04:00 36.4 C L 82 18 166/84 H 94 Laboratory Results Abnormal lab results 11/01/19 11/01/19 11/01/19 Range/Units 22:50 22:50 23:27 WBC 14.06 H (4.8-10.8) K/uL MCV (80-100) fL MCHC 36.3 H (32-36) g/dL Immature Gran # (Auto) 0.06 H (0.00-0.02) K/uL Neut # (Auto) 10.61 H (1.4-6.5) K/uL Banks # (Auto) 0.79 H (0.11-0.59) K/uL Sodium 132 L (136-145) mmol/L Potassium (3.5-5.1) mmol/L Chloride 96 L (98-107) mmol/L Glucose 323 H* (70-99) mg/dl POC Glucose (70-99) mg/dl Hemoglobin A1c (4.5-5.6) % AST 10 L (15-37) U/L Troponin I 0.104 H* (0-0.045) ng/ml Globulin 4.2 H (2.5-4.0) gm/dl Albumin/Globulin Ratio 0.8 L (0.9-2) Triglycerides (0-150) mg/dl Urine Protein Trace H (Negative) Urine Glucose (UA) 3+ H (Negative) U Epithel Cells (Auto) >30 H (0-5) /lpf 11/02/19 11/02/19 11/02/19 Range/Units 02:34 05:14 05:14 WBC 14.45 H (4.8-10.8) K/uL MCV 79.9 L (80-100) fL MCHC (32-36) g/dL Immature Gran # (Auto) 0.05 H (0.00-0.02) K/uL Neut # (Auto) 11.99 H (1.4-6.5) K/uL Banks # (Auto) 0.65 H (0.11-0.59) K/uL Sodium (136-145) mmol/L Potassium (3.5-5.1) mmol/L Chloride (98-107) mmol/L Glucose (70-99) mg/dl POC Glucose 335 H* (70-99) mg/dl Hemoglobin A1c 9.5 H (4.5-5.6) % AST (15-37) U/L Troponin I (0-0.045) ng/ml Globulin (2.5-4.0) gm/dl Albumin/Globulin Ratio (0.9-2) Triglycerides (0-150) mg/dl Urine Protein (Negative) Urine Glucose (UA) (Negative) U Epithel Cells (Auto) (0-5) /f 11/02/19 11/02/19 11/02/19 Range/Units 05:14 05:14 07:40 WBC (4.8-10.8) K/uL MCV (80-100) fL MCHC (32-36) g/dL Immature Gran # (Auto) (0.00-0.02) K/uL Neut # (Auto) (1.4-6.5) K/uL Banks # (Auto) (0.11-0.59) K/uL Sodium 131 L (136-145) mmol/L Potassium 3.3 L (3.5-5.1) mmol/L Chloride 97 L (98-107) mmol/L Glucose 254 H (70-99) mg/dl POC Glucose 214 H (70-99) mg/dl Hemoglobin A1c (4.5-5.6) % AST (15-37) U/L Troponin I 0.097 H* (0-0.045) ng/ml Globulin (2.5-4.0) gm/dl Albumin/Globulin Ratio (0.9-2) Triglycerides 298 H (0-150) mg/dl Urine Protein (Negative) Urine Glucose (UA) (Negative) U Epithel Cells (Auto) (0-5) /lpf 11/02/19 11/02/19 11/02/19 Range/Units 11:28 15:34 16:23 WBC (4.8-10.8) K/uL MCV (80-100) fL MCHC (32-36) g/dL Immature Gran # (Auto) (0.00-0.02) K/uL Neut # (Auto) (1.4-6.5) K/uL Banks # (Auto) (0.11-0.59) K/uL Sodium 128 L (136-145) mmol/L Potassium (3.5-5.1) mmol/L Chloride 96 L (98-107) mmol/L Glucose 340 H* (70-99) mg/dl POC Glucose 258 H 329 H* (70-99) mg/dl Hemoglobin A1c (4.5-5.6) % AST 10 L (15-37) U/L Troponin I (0-0.045) ng/ml Globulin (2.5-4.0) gm/dl Albumin/Globulin Ratio (0.9-2) Triglycerides (0-150) mg/dl Urine Protein (Negative) Urine Glucose (UA) (Negative) U Epithel Cells (Auto) (0-5) /lpf 11/02/19 Range/Units 16:34 WBC (4.8-10.8) K/uL MCV (80-100) fL MCHC (32-36) g/dL Immature Gran # (Auto) (0.00-0.02) K/uL Neut # (Auto) (1.4-6.5) K/uL Banks # (Auto) (0.11-0.59) K/uL Sodium (136-145) mmol/L Potassium (3.5-5.1) mmol/L Chloride (98-107) mmol/L Glucose (70-99) mg/dl POC Glucose 316 H* (70-99) mg/dl Hemoglobin A1c (4.5-5.6) % AST (15-37) U/L Troponin I (0-0.045) ng/ml Globulin (2.5-4.0) gm/dl Albumin/Globulin Ratio (0.9-2) Triglycerides (0-150) mg/dl Urine Protein (Negative) Urine Glucose (UA) (Negative) U Epithel Cells (Auto) (0-5) /lpf Diagnostic Findings carotid doppler-No hemodynamically significant stenosis. Biphasic flow within the right vertebral artery may reflect early changes of subclavian steal. MRA head 1. The distal right vertebral artery is only faintly visualized at the C1 level. Therefore, this could be severely hypoplastic, congenitally absent, or possibly a occluded. However, this is considered less likely given the lack of an infarct on the same day brain MRI. Follow-up neck CTA can be performed for further evaluation if clinically warranted. Moderate focal narrowing within the distal right P1 segment and mild focal narrowing within the mid left P1 segment. However, the distal bilateral mold maintenance technician are patent. MRI brain-. No acute intracranial abnormality, specifically there is no evidence of acute or subacute infarction. Moderate T2/FLAIR hyperintensities throughout the white matter are nonspecific however statistically favor chronic microvascular ischemic disease with demyelinating process considered less likely. Mild paranasal sinus disease. CT head-No acute intracranial abnormality. CXR- No active disease in the chest.
[2019-11-02 16:11] LABS: Albumin Globulin Ratio 0.9 (0.9-2); Albumin Level 3.6 gm/dl (3.4-5.0); BUN Creatinine Ratio 11.7 (10-20); Bilirubin,Total 0.4 mg/dl (0.2-1); Calcium 9.1 mg/dl (8.5-10.1); Creatinine Clr Calc Pharmacy 55.9 ml/min; Est GFR (African American) 62.3; Est GFR (Non-African American) 53.7; Potassium 3.5 mmol/L (3.5-5.1); Total Protein 7.6 gm/dl (6.4-8.2)
--- NOTE | 2019-11-02 16:15 | Pharmacy Report ---
Pharmacy Glycemic Rec 1 - Date of Service November 02, 2019 - Scope Glycemic Pharmacist to provide recommendations to improve outpatient glycemic control. Pt identified with hyperglycemia (BSG above 180) while admitted. - Subjective The patient is a 54 year old F admitted on 11/02/19 00:46 for HTN CRISIS. Patient's past medical history is significant for diabetes mellitus. - Objective Accuchecks BSG (last 24hrs):: 11/01/19 11/02/19 11/02/19 22:50 02:34 05:14 Glucose 323 H* 254 H POC Glucose 335 H* 11/02/19 11/02/19 07:40 11:28 Glucose POC Glucose 214 H 258 H Laboratory Data (last 24hrs):: 11/01/19 11/01/19 11/02/19 22:50 22:50 05:14 WBC 14.06 H Sodium 132 L Potassium 3.7 Anion Gap 10.0 BUN 11 Creatinine 1.04 BUN/Creatinine Ratio 10.7 Hemoglobin A1c 9.5 H 11/02/19 11/02/19 05:14 05:14 WBC 14.45 H Sodium 131 L Potassium 3.3 L Anion Gap 9.0 BUN 11 Creatinine 0.87 BUN/Creatinine Ratio 12.9 Hemoglobin A1c - Recent Pertinent Medications Outpatient Anti-diabetic Regimen: * Metformin 1000 mg PO BID * Glipizide 10 mg PO BID The patient is currently receiving: * Basal Insulin: Lantus 15 units every 24 hours * Correctional Insulin: Novolog Correction per scale ACHS Goal Range: Low 140 mg/dL - High 180 mg/dL Correction Factor: 25 mg/dL/unit * Prandial Insulin: Per carb ratio of 1 unit per 15 grams CHO consumed * Holding outpatient oral medications Risk Factors for Insulin Resistance: * None at this time - Assessment & Plan ASSESSMENT: * 54 yo F admitted on evening of 11/01/2019 secondary to hypertensive crisis * PMHx significant for hypertension, non-insulin dependent T2DM, hyperlipidemia, GERD * Patient also presenting with stroke-like symptoms, however stroke ruled out via brain imaging * Consulted by Dr. Norman to make discharge recommendations that are affordable for patient's budget \ * Patient's A1c this morning was 9.5% which is uncontrolled * BSGs have ranged 214-335 mg/dL since admission * Patient received 15 units of Lantus and 19 units of Novolog since admission DISCHARGE RECOMMENDATIONS: * ADA recommended Goal BSGs: * Pre-prandial: 80 - 130 mg/dL * Post-prandial: < 180 mg/dL * ADA recommended A1C < 7% * Continue Metformin 1000 mg PO BID * Discontinue Glipizide 10 mg PO BID secondary to increased risk of hypoglycemia with insulin and TZDs * Recommend: * ReliON N insulin: Inject 10-15 units subcutaneously prior to breakfast and dinner (0.23-34 units/kg/day) (~ $25) * ReliON glucometer: ~ $9 * ReliON lancets: ~ $3 * ReliON strips: ~ $9 * Test BSG prior to breakfast and dinner (monitor in BSG log) * Follow-up with outpatient PCP/endrocrinologist/breastfeeding educator within 1 week of discharge * Patient will require close BSG monitoring and extensive hypoglycemia management training including the rule of 15 Please feel free to contact pharmacy with any further questions at [phone]. Thank you.
[2019-11-02 16:22] LABS: Beta-Hydroxybutyrate 0.89 mg/dl (0.2-2.81)
--- NOTE | 2019-11-02 17:21 | Pharmacy Report ---
Glycemic Control Consultation - Date of Service November 02, 2019 - Scope Scope: Glycemic Pharmacist consulted by Dr. Norman on 11/02/2019 for glycemic control and to write orders per [facility] inpatient glycemic control protocol - Objective Weight: 86.1 kg Accuchecks BSG (last 24hrs): 11/01/19 11/02/19 11/02/19 22:50 02:34 05:14 Glucose 323 H* 254 H POC Glucose 335 H* 11/02/19 11/02/19 11/02/19 07:40 11:28 15:34 Glucose 340 H* POC Glucose 214 H 258 H 11/02/19 11/02/19 16:23 16:34 Glucose POC Glucose 329 H* 316 H* Laboratory Data (last 24hrs): 11/01/19 11/02/19 11/02/19 22:50 05:14 15:34 Potassium 3.7 3.3 L 3.5 Carbon Dioxide 26 25 22 Anion Gap 10.0 9.0 10.0 Creatinine 1.04 0.87 1.16 Est Cr Clr Drug Dosing 63.0 74.7 55.9 Beta-Hydroxybutyric Acd 1.80 0.89 HbA1c: Hemoglobin A1c 9.5 % (4.5-5.6) H 11/02/19 05:14 - Recent Pertinent Medications Outpatient Anti-diabetic Regimen: * Metformin 1000 mg BID and Glipizide 10 mg BID * A1c = 9.5% (11/02/2019) The patient is currently receiving: * Basal insulin: Lantus 20 units every 24 hours * Correctional Insulin: Novolog Correction per scale ACHS Goal Range: Low 140 mg/dL - High 180 mg/dL Correction Factor: 25 mg/dL/unit * Prandial insulin: Per carb ratio of 1 unit per 15 grams CHO consumed * Holding outpatient oral meds Risk Factors for Insulin Resistance: * Diet: * T2DM - Assessment & Plan Assessment & Plan: ASSESSMENT: * 54 yo F admitted on 11/01/2019 for hypertensive crisis and stroke-like symptoms * PMHx significant for HTN, HLD, GERD, T2DM * Pharmacy originally consulted strictly to make discharge recommendations * Prior to discharge, patient's BSG was 329 mg/dL prompting attending to keep patient overnight and consult pharmacy to manage glycemic control inpatient * Patient received 15 units of Lantus around midnight and has received 19 units of Novolog to correct so far * Cost is prohibitive to this patient, refer to previous note for discharge recommendations * Will keep patient on Lantus at this time and transition to [facility] if patient is accepting at discharge PLAN FOR INPATIENT GLYCEMIC CONTROL: * Pt is maintained on oral antidiabetic agents as an outpatient * Oral agents are not recommended for inpatient use d/t drug interactions, changing PO intake, and difficulty titrating for acute hyper/hypoglycemia. ADA recommends re-initiating outpatient oral agents 1-2 days prior to discharge if/when appropriate if they were held on admission. * Will hold oral agents for admission and utilize SQ basal bolus insulin regimen which is the recommended regimen for inpatient glycemic control. * Will initiate weight based insulin dosing for insulin bryce patient and titrate based on BSG trends. * IV Insulin * Give 3 units IV bolus x 1 now * Basal insulin * Lantus 25 units SQ x 1 now to give patient total of 40 units today (~ weight and stress of 3 as patient is basal deficient) * Will reassess Lantus dose tomorrow AM * Bolus insulin * NovoLog per scale ACHS or Q6hrs while NPO * Goal Range: Low 110 mg/dL - High 140 mg/dL * Correction Factor: 20 mg/dL/unit * Nutritional / Prandial insulin per carb ratio of 1 unit per 6 grams CHO consumed * Please note that the plan above was derived based on current level of insulin resistance and hospital stress. These recommendations are appropriate for inpatient admission only. Plan of care upon discharge will need to be reassessed to avoid potential outpatient hypo/hyperglycemia. Thank you.
[2019-11-02] MEDS ORDERED: POTASSIUM CHLORIDE 20 MEQ TABCR PO STA (17:25)
[2019-11-02] MEDS ORDERED: INSULIN HUMAN REGULAR PER UNIT 3 UNITS in SYRINGE 2.97 ML IV STA (17:26)
[2019-11-02] MEDS ORDERED: FUROSEMIDE 20 MG in SYRINGE 0 ML IV ONE (17:30)
--- NOTE | 2019-11-02 17:34 | Hospitalist Progress Note ---
Date of Service November 02, 2019 Assessment & Plan (1) TIA (transient ischemic attack): -presents to [facility] ED with complaints left UE heaviness that started about 5 hours prior to arrival. Last for about 10 minutes and resolved spontaneously. face felt "not right but not numb" and that she noticed decreased sensation in her left hand. -Imaging studies carotid doppler-No hemodynamically significant stenosis. Biphasic flow within the right vertebral artery may reflect early changes of subclavian steal. MRA head 1. The distal right vertebral artery is only faintly visualized at the C1 level. Therefore, this could be severely hypoplastic, congenitally absent, or possibly a occluded. However, this is considered less likely given the lack of an infarct on the same day brain MRI. Follow-up neck CTA can be performed for further evaluation if clinically warranted. Moderate focal narrowing within the distal right P1 segment and mild focal narrowing within the mid left P1 segment. However, the distal bilateral soils technician are patent. MRI brain-. No acute intracranial abnormality, specifically there is no evidence of acute or subacute infarction. Moderate T2/FLAIR hyperintensities throughout the white matter are nonspecific however statistically favor chronic microvascular ischemic disease with demyelinating process considered less likely. Mild paranasal sinus disease. CT head-No acute intracranial abnormality. -patient has been given aspirin during hospital stay, will plan to start combination of aspirin and clopidogrel starting on 11/03/2019 (2) Hypertensive crisis: -Initial BP upon arrival at the ER 230/132 -blood pressure generally improving with treatment -currently on labetalol in place of atenolol home dose -continue labetalol -continue home dose lisinopril (3) Type 2 diabetes mellitus: Type 2 diabetes mellitus with hyperglycemia without detention current of insulin -patient takes oral glipizide and metformin at home -Hemoglobin A1c is around 9.5 and patient is hyperglycemic with blood glucose in the 300s when in the hospital -continue to hold glipizide and metformin while inpatient for now -diabetic pharmacy glycemic control asked to help with tighten the glucose control with insulin and for insulin discharge recommendations Dyslipidemia -switch from home dose simvastatin to atorvastatin starting on 11/03/2019 (4) Hyponatremia: -partly due to elevated blood sugars -a dose of furosemide is ordered on 11/02/2019 in case of hyponatremia from hospital IV fluids -trend serum sodium DVT prophylaxis: Lovenox Subjective No current neurological deficits or paraesthesias. blood pressure better controlled. however continues to have hyperglycemia and electrolyte abnormalities. clinically looks well in appearance. speaking in full sentences. no speech or other motor deficits. no headache. no dizziness. no nausea. no vomiting. no chest pain. no shortness of breath. Review of Systems Review of Systems: All systems reviewed & are unremarkable except as noted in HPI & below Physical Exam Constitutional: WD/WN, vitals as above comfortable Eyes: PERRL, conjunctivae normal, anicteric sclerae EOM intact bilaterally ENMT: external ear and nose normal, oropharynx normal Neck: trachea midline, no thyromegaly normal visual inspection Respiratory: normal respiratory effort, lungs clear to auscultation Cardiovascular: Rate/Rhythm: regular rate and regular rhythm Gastrointestinal (Abdomen): normal bowel sounds, soft, nontender, no hepatosplenomegaly Musculoskeletal: Head/Neck/Chest: normocephalic and head atraumatic Neurologic: PERRL, EOMI, accommodation nl, no face palsy, no dysarthria CN's II-XI intact bilaterally and moves all extremities Psychiatric: A+Ox3, euthymic affect Results & Data ([facility]) Vital Signs (Past 12 Hours) Vital Signs Temp Pulse Pulse Pulse Resp BP Pulse Ox 11/02/19 16:11 96 11/02/19 15:05 36.9 C 87 19 167/81 H 96 11/02/19 11:39 36.5 C 78 18 135/73 98 11/02/19 07:35 87 11/02/19 07:12 36.5 C 88 16 149/88 H 95
[2019-11-02] MEDS ORDERED: OPTIRAY 320 125ml IV PRN (21:20)
--- NOTE | 2019-11-02 21:48 | CT Scan Report ---
CT ANGIOGRAPHY OF THE NECK WITH CONTRAST CLINICAL HISTORY: Right vertebral artery stenosis versus occlusion. COMPARISON STUDY: Carotid ultrasound November 02, 2019 Technique: CT angiography of the carotid and vertebral arteries was obtained using [employer] 320 IV and 3D reconstruction on an independent workstation. NASCET criteria was utilized. Automated exposure c ontrol was utilized for the study. A dose lowering technique was utilized adhering to the principles of ALARA. CT DOSE: 611.05 mGy.cm Findings: Lung apices are clear. There is no cervical lymphadenopathy. There is no cervical spine fra cture. No suspicious osseous lesions are noted. No cervical lymphadenopathy is noted. The epiglottis is normal. There is mild to moderate atherosclerotic plaque within the bilateral distal common carotid and proxi mal internal carotid arteries. There is no stenosis within these vessels. There is no dissection with in these vessels. The left vertebral artery is dominant. There is mild stenosis of the proximal left vertebral artery as well as mild stenosis of the left vertebral artery at the C6 level. No additional stenoses within the cervical portion of the left vertebral artery are noted. The right vertebral art catarina is somewhat diminutive, likely on a congenital basis. However, there is relative narrowing of the distal cervical portion of the right vertebral artery and occlusion of the proximal intracranial por tion of the right vertebral artery with distal reconstitution. Atherosclerotic plaque is noted. IMPRESSION: 1. Mild to moderate plaque within the bilateral carotid bifurcations, greater on the left. No stenosi s within the bilateral common carotid or cervical internal carotid arteries. 2. Dominant, patent left vertebral artery. Mild multifocal stenoses within the proximal left vertebra l artery. 3. Somewhat diminutive right vertebral artery, likely on a congenital basis. However, relative narrow ing of the distal cervical portion of the right vertebral artery and occlusion of the proximal intrac ranial portion of the right vertebral artery with distal reconstitution. This finding is likely chron ic given lack of acute infarct on MRI. ACT 112: Negative or not required by law. Electronically signed by: Saleem Palacios M.D. 11/02/2019 9:46 PM
--- NOTE | 2019-11-02 21:56 | CT Scan Report ---
CTA ANGIOGRAPHY OF THE HEAD CLINICAL HISTORY: Distal right vertebral artery stenosis versus occlusion. COMPARISON STUDY: MRA of the head and MRI of the brain performed earlier today. TECHNIQUE: Helical axial images of the head were obtained following uneventful intravenous administr ation of 119 cc of [employer] 320. Automated exposure control was utilized for the study. A dose lower ing technique was utilized adhering to the principles of ALARA. FINDINGS: Sensitivity for detection of acute hemorrhage is diminished on this contrast enhanced exam but none is identified. Ventricular system is unremarkable. The basilar cisterns are patent. There ar e no extra axial collections. No significant calvarial abnormality is noted. There is mild ethmoid si nus mucosal thickening. Mastoid air cells are well aerated. 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 This finding is likely chronic given lack of acute infarct on MRI. This is likely due to atherosclerosis. There is mild stenosis of the proximal intracranial portion of the left vert ebral artery. Moderate to severe stenosis of the left P2 segment is noted. There is moderate stenosis of the right P2 segment. There is extensive plaque within bilateral cavernous carotids with moderate stenosis of the bilateral cavernous carotids. Moderate to severe stenosis of the left M1 segment is noted. No intraluminal thrombus is noted. There is no intracranial aneurysm. No dissection within the intracranial vessels is noted. IMPRESSION: 1. Extensive atherosclerosis of the intracranial vessels. Numerous stenoses, including moderate to se burke stenoses of the bilateral P2 segments, the left M1 segment and the bilateral cavernous carotids, as detailed above. 2. 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 This finding is likely chronic given lack of acute infarct on MRI. ACT 112: Negative or not required by law. Electronically signed by: Saleem Palacios M.D. 11/02/2019 9:55 PM
[2019-11-03] MEDS: INSULIN ASPART 100 UNITS/ML 3 ML PEN SC SCH ×3 (04:21→12:19)
[2019-11-03] MEDS ORDERED: NovoLIN-N (NPH) PER UNIT CHARGE SQ SCH (08:00)
[2019-11-03 08:09] LABS: Albumin Level 3.3 gm/dl (3.4-5.0); BUN Creatinine Ratio 17.1 (10-20); Creatinine Clr Calc Pharmacy 77.4 ml/min; Est GFR (Non-African American) 79.3; Potassium 3.5 mmol/L (3.5-5.1)
[2019-11-03] MEDS: PANTOprazole 40 MG TAB PO SCH (08:09)
[2019-11-03] MEDS: LABETALOL HCL 100 MG TAB PO SCH (08:09)
[2019-11-03] MEDS: FLUTICASONE PROPIONATE NA SPR 16 GM BTL SCH (08:10)
[2019-11-03 08:12] LABS: Albumin Globulin Ratio 0.9 (0.9-2); Bilirubin,Total 0.4 mg/dl (0.2-1); Globulin 3.7 gm/dl (2.5-4.0)
[2019-11-03] MEDS ORDERED: ASPIRIN 81 MG ECTAB PO SCH (09:00)
[2019-11-03] MEDS ORDERED: CLOPIDOGREL BISULFATE 75 MG TAB PO SCH (09:00)
[2019-11-03] MEDS ORDERED: INSULIN GLARGINE SOLOSTAR 100 UNITS/ML 3 ML PEN SQ SCH (09:00)
[2019-11-03] MEDS ORDERED: lisinopriL 40 MG TAB PO SCH (09:00)
[2019-11-03] MEDS ORDERED: ATORVASTATIN 40 MG TAB PO SCH (09:00)
--- NOTE | 2019-11-03 11:13 | Hospitalist Progress Note ---
Date of Service November 03, 2019 Assessment & Plan (1) TIA (transient ischemic attack): -presents to [facility] ED with complaints left UE heaviness that started about 5 hours prior to arrival. Last for about 10 minutes and resolved spontaneously. face felt "not right but not numb" and that she noticed decreased sensation in her left hand. -Imaging studies carotid doppler-No hemodynamically significant stenosis. Biphasic flow within the right vertebral artery may reflect early changes of subclavian steal. MRA head 1. The distal right vertebral artery is only faintly visualized at the C1 level. Therefore, this could be severely hypoplastic, congenitally absent, or possibly a occluded. However, this is considered less likely given the lack of an infarct on the same day brain MRI. Follow-up neck CTA can be performed for further evaluation if clinically warranted. Moderate focal narrowing within the distal right P1 segment and mild focal narrowing within the mid left P1 segment. However, the distal bilateral call center analyst are patent. MRI brain-. No acute intracranial abnormality, specifically there is no evidence of acute or subacute infarction. Moderate T2/FLAIR hyperintensities throughout the white matter are nonspecific however statistically favor chronic microvascular ischemic disease with demyelinating process considered less likely. Mild paranasal sinus disease. CT head-No acute intracranial abnormality. -patient has been given aspirin during hospital stay, will plan to start combination of aspirin and clopidogrel starting on 11/03/2019 Echocardiogram with normal ejection fraction and no noted ASD and no noted PFO patient should follow up with primary care doctor in 1 week with repeat labs including comprehensive metabolic panel inpatient telemetry events with no acute events [facility] neurology suggested outpatient Zio Patch scheduled appointment [facility] neurology appointment 11/17/2019 9:20 AM Provider Parker Hester DO Department Neurology [facility], call to confirm directions to [address] [place] [address] Abner Caraballo, [place] [id number] discharge medications sent electronically [address] [place] [address] aspirin 81 mg daily clopidogrel 75 mg daily (for 21 days only with the aspirin). avoid omeprazole when taking clopidogrel to avoid potential drug interactions. So ranitidine 300 mg daily prescribed for gastric reflux atorvastatin 40 mg daily instead of simvastatin labetalol 100 mg BID (2) Hypertensive crisis: -Initial BP upon arrival at the ER 230/132 -blood pressure generally improving with treatment -currently on labetalol in place of atenolol home dose -continue labetalol -continue home dose lisinopril (3) Type 2 diabetes mellitus: Type 2 diabetes mellitus with hyperglycemia without nursing home current of insulin -patient takes oral glipizide and metformin at home -Hemoglobin A1c is around 9.5 and patient is hyperglycemic with blood glucose in the 300s when in the hospital -continue to hold glipizide and metformin while inpatient for now -diabetic pharmacy glycemic control asked to help with tighten the glucose control with insulin and for insulin discharge recommendations -Paper prescriptions for following diabetes insulin and supplies ReliON N insulin: Inject 10-15 units subcutaneously prior to breakfast and dinner (0.23-34 units/kg/day) (~ $25) ReliON glucometer: ~ $9 ReliON lancets: ~ $3 ReliON strips: ~ $9 Test blood sugars prior to breakfast and dinner (monitor blood sugars in a log to give to family medical doctor) -outpatient instructions of Continue Metformin 1000 mg PO BID. Discontinue Glipizide 10 mg PO BID secondary to increased risk of hypoglycemia with insulin and TZDs Dyslipidemia -switch from home dose simvastatin to atorvastatin starting on 11/03/2019 (4) Hyponatremia: -partly low due to elevated blood sugars -a dose of furosemide is ordered on 11/02/2019 in case of hyponatremia from hospital IV fluids -serum sodium is 132 on 11/03/2019 which is improvement, outpatient lab follow up with primary care doctor Discharge Diagnosis TIA (transient ischemic attack), Hypertensive crisis, Hyponatremia, Type 2 diabetes mellitus with hyperglycemia without buttermaker current of insulin Subjective no focal neurological deficits. no headache. no dizziness. no headache. no chest pain. no abdominal pain. no nausea. no vomiting. Review of Systems Review of Systems: All systems reviewed & are unremarkable except as noted in HPI & below Physical Exam Constitutional: WD/WN, vitals as above comfortable Eyes: PERRL, conjunctivae normal, anicteric sclerae EOM intact bilaterally ENMT: external ear and nose normal, oropharynx normal Neck: trachea midline, no thyromegaly normal visual inspection Respiratory: normal respiratory effort, lungs clear to auscultation Cardiovascular: Rate/Rhythm: regular rate and regular rhythm Gastrointestinal (Abdomen): normal bowel sounds, soft, nontender, no hep atosplenomegaly Musculoskeletal: Head/Neck/Chest: normocephalic and head atraumatic Neurologic: PERRL, EOMI, accommodation nl, no face palsy, no dysarthria CN's II-XI intact bilaterally and moves all extremities Psychiatric: A+Ox3, euthymic affect Results & Data ([facility]) Vital Signs (Past 12 Hours) Vital Signs Temp Pulse Pulse Pulse Resp BP Pulse Ox 11/03/19 08:00 37.0 C 84 16 139/72 97 11/03/19 07:26 91 H 11/03/19 05:11 36.3 C L 91 H 16 132/73 92 11/02/19 23:59 80 11/02/19 23:27 37.0 C 92 H 16 126/72 95
--- NOTE | 2019-11-03 11:18 | Discharge Summary ---
Date of Service November 03, 2019 Admission HPI Per Admitting Provider History obtained from patient, family, and records. Medical history significant for hypertension, hyperlipidemia, DM 2 on oral medications, GERD. Yesterday afternoon patient noted a funny sensation on the left side of her face, no headache. She later noted left arm heaviness. No chest pain, no S OB. 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 Initial BP upon arrival at the ER 230/132. Patient claims to be compliant with home meds. Does not regularly take blood pressure at home. Last BP check was at PCPs office months ago. SBP 140s as per patient. Denies dietary indiscretion or any OTC NSAID intake. Although she snores as per , he is not certain about apneic events during sleep. Patient given aspirin at the ER. Left upper extremity heaviness improving. Nicardipine drip started and IV hydralazine bolus given at the ER for hypertensive crisis. SBP currently 180s. Medical History as above Surgical History : Arm surgery Family History : Heart disease, diabetes Personal/Social history : Non-smoker, no EtOH intake, registered nurse Admission Exam Per Admitting Provider GENERAL: Comfortable, obese, no respiratory distress SKIN: Normal color, warm HEENT: Bespectacled, pink palpebral conjunctivae, no ptosis, dry buccal mucosa NECK : Supple, short neck, no tenderness CHEST : CTA, no tenderness HEART : RRR, no obvious murmurs ABDOMEN: Some distention, nontender EXTREMITIES : No LE swelling/tenderness, no other conspicuous deformities noted NEUROLOGIC : Coherent, no facial asymmetry, no other gross focality Principal Diagnosis TIA (transient ischemic attack), Hypertensive crisis, Hyponatremia, Type 2 diabetes mellitus with hyperglycemia without group home current of insulin Discharge Exam Constitutional WD/WN, vitals as above comfortable Eyes PERRL, conjunctivae normal, anicteric sclerae EOM intact bilaterally ENMT external ear and nose normal, oropharynx normal Neck trachea midline, no thyromegaly normal visual inspection Respiratory normal respiratory effort, lungs clear to auscultation Cardiovascular Rate/Rhythm: regular rate and regular rhythm Gastrointestinal (Abdomen) normal bowel sounds, soft, nontender, no hepatosplenomegaly Musculoskeletal Head/Neck/Chest: normocephalic and head atraumatic Neurologic PERRL, EOMI, accommodation nl, no face palsy, no dysarthria CN's II-XI intact bilaterally and moves all extremities Psychiatric A+Ox3, euthymic affect Discharge Data Allergies Allergy/AdvReac Type Severity Reaction Status Date / Time tetracycline AdvReac Severe SEVERE GI Verified 11/01/19 22:54 UPSET aspirin AdvReac Intermediate HX Verified 11/01/19 22:54 ULCERS--GI UPSET Consultations 11/01/19 23:44 ED Decision to Admit Stat 11/02/19 01:55 Consult Case Management - Discharge Planning Routine Consult Case Management - Discharge Planning Routine Consult Neurology Routine Ordered Studies 11/01/19 22:17 CT head/brain wo con Urgent 11/02/19 01:55 MR angio head wo con Routine MR brain wo con Routine 11/02/19 03:11 US carotid doppler BI Routine 11/02/19 20:44 CT angio head w con Routine CT angio neck with con Routine Hospital Course (1) TIA (transient ischemic attack): -presents to [facility] ED with complaints left UE heaviness that started about 5 hours prior to arrival. Last for about 10 minutes and resolved spontaneously. face felt "not right but not numb" and that she noticed decreased sensation in her left hand. -Imaging studies carotid doppler-No hemodynamically significant stenosis. Biphasic flow within the right vertebral artery may reflect early changes of subclavian steal. MRA head 1. The distal right vertebral artery is only faintly visualized at the C1 level. Therefore, this could be severely hypoplastic, congenitally absent, or possibly a occluded. However, this is considered less likely given the lack of an infarct on the same day brain MRI. Follow-up neck CTA can be performed for further evaluation if clinically warranted. Moderate focal narrowing within the distal right P1 segment and mild focal narrowing within the mid left P1 segment. However, the distal bilateral outside parts sales are patent. MRI brain-. No acute intracranial abnormality, specifically there is no evidence of acute or subacute infarction. Moderate T2/FLAIR hyperintensities throughout the white matter are nonspecific however statistically favor chronic microvascular ischemic disease with demyelinating process considered less likely. Mild paranasal sinus disease. CT head-No acute intracranial abnormality. -patient has been given aspirin during hospital stay, will plan to start combination of aspirin and clopidogrel starting on 11/03/2019 Echocardiogram with normal ejection fraction and no noted ASD and no noted PFO patient should follow up with primary care doctor in 1 week with repeat labs including comprehensive metabolic panel inpatient telemetry events with no acute events [facility] neurology suggested outpatient Zio Patch scheduled appointment [facility] neurology appointment 11/17/2019 9:20 AM Provider Parker Hester DO Department Neurology [facility], call to confirm directions to [address] [place] [address] [place] [address] discharge medications sent electronically [address] [place] [address] aspirin 81 mg daily clopidogrel 75 mg daily (for 21 days only with the aspirin). avoid omeprazole when taking clopidogrel to avoid potential drug interactions. 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 -patient takes oral glipizide and metformin at home -Hemoglobin A1c is around 9.5 and patient is hyperglycemic with blood glucose in the 300s when in the hospital -continue to hold glipizide and metformin while inpatient for now -diabetic pharmacy glycemic control asked to help with tighten the glucose control with insulin and for insulin discharge recommendations -Paper prescriptions for following diabetes insulin and supplies ReliON N insulin: Inject 10-15 units subcutaneously prior to breakfast and dinner (0.23-34 units/kg/day) (~ $25) ReliON glucometer: ~ $9 ReliON lancets: ~ $3 ReliON strips: ~ $9 Test blood sugars prior to breakfast and dinner (monitor blood sugars in a log to give to family medical doctor) -outpatient instructions of Continue Metformin 1000 mg PO BID. Discontinue Glipizide 10 mg PO BID secondary to increased risk of hypoglycemia with insulin and TZDs Dyslipidemia -switch from home dose simvastatin to atorvastatin starting on 11/03/2019 (4) Hyponatremia: -partly low due to elevated blood sugars -a dose of furosemide is ordered on 11/02/2019 in case of hyponatremia from hospital IV fluids -serum sodium is 132 on 11/03/2019 which is improvement, outpatient lab follow up with primary care doctor Discharge Diagnosis TIA (transient ischemic attack), Hypertensive crisis, Hyponatremia, Type 2 diabetes mellitus with hyperglycemia without group home current of insulin Total Time Total Time Spent Total Time Spent (In Minutes): 40 minutes Total Time Includes: Examination of the Patient, Discharge Planning, Medication Reconciliation and Communication With Other Providers Discharge Plan Discharge Items Patient Disposition: Home - Self-Care Reason For Visit: HTN CRISIS Discharge Diagnosis: TIA (transient ischemic attack), Hypertensive crisis, Hyponatremia, Type 2 diabetes mellitus with hyperglycemia 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 Biphasic flow within the right vertebral artery may reflect early changes of subclavian steal. MRA head 1. The distal right vertebral artery is only faintly visualized at the C1 level. Therefore, this could be severely hypoplastic, congenitally absent, or possibly a occluded. However, this is considered less likely given the lack of an infarct on the same day brain MRI. Follow-up neck CTA can be performed for further evaluation if clinically warranted. Moderate focal narrowing within the distal right P1 segment and mild focal narrowing within the mid left P1 segment. However, the distal bilateral outside parts sales are patent. MRI brain-. No acute intracranial abnormality, specifically there is no evidence of acute or subacute infarction. Moderate T2/FLAIR hyperintensities throughout the white matter are nonspecific however statistically favor chronic microvascular ischemic disease with demyelinating process considered less likely. Mild paranasal sinus disease. CT head-No acute intracranial abnormality. Echocardiogram with normal ejection fraction and no noted ASD and no noted PFO patient should follow up with primary care doctor in 1 week with repeat labs including comprehensive metabolic panel inpatient telemetry events with no acute events [facility] neurology suggested outpatient Zio Patch scheduled appointment [facility] neurology appointment 11/17/2019 9:20 AM Provider Parker Hester DO Department Neurology [facility], call to confirm directions to [address] [place] [address] bAner Caraballo, [place] [id number] discharge medications sent electronically [address] [place] [address] aspirin 81 mg daily clopidogrel 75 mg daily (for 21 days only with the aspirin). avoid omeprazole when taking clopidogrel to avoid potential drug interactions. So ranitidine 300 mg daily prescribed for gastric reflux atorvastatin 40 mg daily instead of simvastatin labetalol 100 mg BID Continue Metformin 1000 mg PO BID. 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 Some specific ways to lower your chance of stroke are: * If you are a smoker, now is the time to stop smoking cigarettes * If you are diabetic, improve the control of your blood sugars * Avoid excessive amounts of alcohol * Control high blood pressure * Lose weight if you are overweight * Be sure to lead an active lifestyle * Eat a healthy diet low in salt, cholesterol and fat You should know about other risk factors for stroke that you are unable to control. These include: * Age 55 years or older * Male gender * Certain racial groups: , or / * Family History of Stroke, Mini stroke or Heart Attack * Sickle Cell Disease Follow Up: It is important for you to keep your follow up appointments with your medical provider. Who to Call and When: Medical Emergencies: Call 911 immediately if you experience any of the following warning signs and symptoms of Stroke: * Sudden numbness or weakness of the face, arm or leg, especially on one side of the body * Sudden confusion, trouble speaking or understanding * Sudden trouble seeing in one or both eyes * Sudden trouble walking, dizziness, loss of balance or coordination * Sudden severe headache with no cause Do not delay calling 911 if you experience any warning signs or symptoms of a stroke. Delay in seeking medical attention may affect what treatments can be given to you. . Pending Studies at Discharge: No Stand-Alone Forms: My [facility], Smoking Cessation Medications and DC Order Prescriptions: New atorvastatin 40 mg Tablet 40 mg PO QAM 30 Days Qty: 30 RF: 0 clopidogrel 75 mg Tablet 75 mg PO QAM 21 Days Qty: 21 RF: 0 aspirin [Ecotrin Low Strength] 81 mg Tablet,Delayed Release (Dr/Ec) 81 mg PO QAM 30 Days Qty: 30 RF: 0 labetalol 100 mg Tablet 100 mg PO BID 30 Days Qty: 60 RF: 0 ranitidine HCl 300 mg tablet 300 mg PO DAILY 30 Days Qty: 30 RF: 0 Continued acetaminophen [Tylenol Extra Strength] 500 mg Tablet 1,000 mg PO DIRECTED PRN (Reason: Fever Or Pain) RF: 0 indapamide 1.25 mg Tablet 1.25 mg PO QAM RF: 0 lisinopril 40 mg Tablet 40 mg PO DAILY RF: 0 Discontinued glipizide 10 mg Tablet 10 mg PO BID RF: 0 atenolol 25 mg Tablet 25 mg PO BID RF: 0 simvastatin 40 mg Tablet 40 mg PO DAILY RF: 0 metformin 1,000 mg Tablet 1,000 mg PO BID RF: 0 omeprazole 20 mg Capsule,Delayed Release(Dr/Ec) 20 mg PO DAILY RF: 0 fenofibrate 160 mg Tablet 160 mg PO DAILY RF: 0 Discharge Orders: Discharge Order (Routine); Ordered 11/03/19 Ordered By: [place]/Other Patient Handouts: Insulin Types, TIA, Diabetes Type 2, Prevention Guidelines Women Ages 50 to 64, Insulin Injection Steps, Smoking Diabetes Admission Data Admit Date/Time: 11/02/19 00:46 Attending Provider: [facility] [place] Admit Provider: Dax Yeager Primary Care Provider: Sterling Howe Other Providers: Dax Yeager ; Ashkan Leonard
[2019-11-03] MEDS ORDERED: INSULIN HUMAN NPH SC SCH (17:00)
== END 2019-11-03 16:10 | disposition home or self-care (01) | DRG 69 ==
LOC: ED 22:05 → SUATTDRO 11-02 00:46 → 2S 11-02 00:46